=== PATIENT | male | born 1995 | race Caucasian/White ===

== ENCOUNTER 2017-01-19 23:44 | Emergency (ER) | payer OTHER ==
[~2017-01-19] VITALS: Ht 180.3 cm; Wt 82.7 kg
[~2017-01-19 23:44] MED LIST: AZITTAB PO; IBUP1CAP9 PO; LIDO2SOL17 PO; PSEU60TA80 PO
[2017-01-19 23:56] VITALS: TEMP 36.3; Ht 180.3 cm; Wt 82.7 kg
--- NOTE | 2017-01-20 00:21 | EMERGENCY ROOM VISIT NOTE ---
History Report prepared by Delia: Ermias Bliss Under the Supervision of: Dr. Leonor Ceja M.D. First contact with patient: 23:46 Chief Complaint: ALCOHOL OVERDOSE Stated Complaint: ALCOHOL OVERDOSE Nursing Triage Summary: patient brought in by ems patient found walking intoxicated by [facility] patient had pbt of 0.283 patient reports drinking liquor History of Present Illness The patient is a 21 year old male who presents to the Emergency Room via EMS with complaints of alcohol overdose occurring tonight. The patient was walking alone and appeared to be intoxicated when he was picked up by the police and brought to the Emergency Room by EMS. The patient has a scratch on his face and left elbow but does not remember how he got them. He denies any fights, falls, or trauma. HPI is limited secondary to alcohol intoxication. Source of History: patient History Limited By: intoxication Onset: tonight Position: other (global) Quality: other (alcohol overdose) Review of Systems ROS is limited secondary to alcohol intoxication. Past Medical & Surgical Medical Problems: (1) Alcohol intoxication (2) Fall (3) Influenza-like symptoms (4) Influenza-like symptoms (5) Laceration of cheek, right (6) Nasal bones, open fracture (7) Nasal laceration (8) Pharyngitis Family History Patient reports no known family medical history. Social History Smoking Status: Never Smoker Alcohol Use: occasionally Drug Use: none Marital Status: single Housing Status: lives with roommate Occupation Status: [employer] student Current/Historical Medications No Active Prescriptions or Reported Meds Allergies Coded Allergies: No Known Allergies (Unverified , 01/20/17) Physical Exam Vital Signs Date Time Temp Pulse Resp B/P Pulse Ox O2 Delivery O2 Flow Rate FiO2 01/20/17 06:17 75 18 94/54 96 Room Air 01/20/17 04:31 97 16 109/74 97 Room Air 01/20/17 03:21 86 16 97/44 95 Room Air 01/20/17 03:07 89 01/20/17 02:19 91 16 98/50 95 Room Air 01/20/17 01:07 88 16 104/62 96 Room Air 01/19/17 23:56 36.3 117 18 110/95 96 Room Air 01/19/17 23:52 119 Physical Exam Vital signs reviewed. General: Odor of EtOH in the breath, disheveled 21-year-old male. HEENT: Mild scleral injection bilaterally, PERRLA, neck supple, dry mucous membranes. Cardiovascular: Regular rate and rhythm, no extra sounds. Pulmonary: Clear to auscultation bilaterally, normal work of breathing. Abdomen: Soft, nontender, nondistended, positive bowel sounds. Musculoskeletal: Upper and lower extremities atraumatic, no peripheral edema Skin: Warm, dry, no rash. Superficial abrasion to the left cheek in a linear fashion. Neurologic: Patient is verbal but somewhat confused. linear abrasion to face, appears to be a fingernail scratch or scrap Medical Decision & Procedures Laboratory Results Test 01/19/17 23:52 Ethyl Alcohol mg/dL 377.0 mg/dl (0-3) Laboratory results per my review. ED Course 2346: Past medical records reviewed. The patient was evaluated in room B04B. A complete history and physical examination was performed. Medical Decision The differential diagnosis of the patient's presentation includes alcohol ingestion, illicit drug use, trauma, and dehydration. This patient was evaluated and appeared to be in no significant distress. He is obviously intoxicated. Blood alcohol is 377. Patient was observed until he reached a more sober state. He was discharged to follow-up with [facility] [address] as directed. He'll drink plenty of fluids and use Tylenol as needed for pain. He'll return to the ER for worsening of symptoms or any medical concerns. Impression Primary Impression: Alcohol intoxication Scribe Attestation The scribe's documentation has been prepared under my direction and personally reviewed by me in its entirety. I confirm that the note above accurately reflects all work, treatment, procedures, and medical decision making performed by me. Departure Information Prescriptions No Active Prescriptions or Reported Meds Referrals [facility] (PCP) Patient Instructions [facility] Problem Qualifiers Primary Impression: Alcohol intoxication Complication of substance-induced condition: with delirium Qualified Codes: F10.121 - Alcohol abuse with intoxication delirium
[2017-01-20 07:43] VITALS: BP 147/87; PULSE 93; O2SAT 97
== END 2017-01-20 07:47 | disposition home or self-care (01) ==
LOC: EDBD 23:44 → C.EDB 23:45
DX: F10.121 Alcohol abuse with intoxication delirium (principal)